=== PATIENT | female | born 1970 | race Caucasian/White ===

== ENCOUNTER 2022-05-19 16:28 | Emergency (ER) | payer OTHER ==
[~2022-05-19] VITALS: Ht 170.2 cm; Wt 86.2 kg
[2022-05-19 17:04] VITALS: BP 184/95
[2022-05-19] MEDS ORDERED: TETRACAINE HCL/PF 0.5% OPTH 4 ML BTL OP ONE (17:40)
--- NOTE | 2022-05-19 19:14 | NUR ---
Patient discharged with v/s stable. Written and verbal after care instructions given. Patient verbalized understanding. Ambulatory with steady gait. All questions addressed prior to discharge. Advised to follow up with PMD.
== END 2022-05-19 19:14 | disposition home or self-care (01) ==
LOC: MED 16:28
DX: H53.8 Other visual disturbances (principal)
CPT/HCPCS: 99284

== ENCOUNTER 2023-07-15 13:01 | Emergency (ER) | payer OTHER ==
[~2023-07-15] VITALS: Ht 170.2 cm; Wt 68.0 kg
[2023-07-15 13:18] VITALS: BP 195/84; PULSE 75; RESP 18; TEMP 98.3; O2SAT 99
[2023-07-15 15:37] LABS: BASOPHILS # (AUTO) 0.1 K/uL (0.00-0.22); EOSINOPHILS # (AUTO) 0.1 K/uL (0-0.4); EOSINOPHILS % (AUTO) 2.2 % (0.0-4.0); HEMATOCRIT 36.4 % (36-48); HEMOGLOBIN 12.4 g/dL (12.0-16.0); LYMPHOCYTES # (AUTO) 1.4 K/uL (2.5-16.5); LYMPHOCYTES % (AUTO) 25.7 % (20.5-51.1); MEAN CORPUSCULAR HEMOGLOBIN 28 pg (27-31); MEAN CORPUSCULAR HGB CONC 34 g/dL (33-37); MEAN CORPUSCULAR VOLUME 82.4 fL (80-94); MONOCYTES # (AUTO) 0.4 K/uL (0.8-1.0); MONOCYTES % (AUTO) 7.7 % (1.7-9.3); NEUTROPHILS # (AUTO) 3.4 K/uL (1.8-7.7); NEUTROPHILS % (AUTO) 63.4 % (42.2-75.2); PLATELET COUNT (AUTO) 253 K/uL (140-450); RED BLOOD CELL COUNT(AUTO) 4.41 MIL/uL (4.20-5.40); WHITE BLOOD COUNT (AUTO) 5.3 K/uL (4.8-10.8)
[2023-07-15 15:56] LABS: ANION GAP 10.1 (8-16); CALCIUM 8.7 mg/dL (8.5-10.1); CARBON DIOXIDE 29.9 mmol/L (21-32)
[2023-07-15 16:03] LABS: MAGNESIUM 2.4 mg/dL (1.8-2.4); PHOSPHORUS 5.5 mg/dL (2.5-4.9)
[2023-07-15 19:26] VITALS: BP 171/75; PULSE 80; RESP 18; TEMP 98.3; O2SAT 97
[2023-07-15] MEDS ORDERED: ASPI81EC19 PO (19:26)
== END 2023-07-15 19:26 | disposition home or self-care (01) ==
LOC: MED 13:01
DX: R20.2 Paresthesia of skin (principal); I12.0 Hypertensive chronic kidney disease with stage 5 chronic kidney disease or end stage renal disease; E11.22 Type 2 diabetes mellitus with diabetic chronic kidney disease; N18.6 End stage renal disease; Z79.4 Long term (current) use of insulin; Z79.899 Other long term (current) drug therapy; Z99.2 Dependence on renal dialysis
CPT/HCPCS: 36415; 70450; 80048; 83735; 84100; 84443; 84484; 85025; 93005; 99284